=== PATIENT | male | born 1970 | race African-American/Black ===

== ENCOUNTER 2019-10-07 18:31 | Inpatient (IN) | payer OTHER ==
[~2019-10-07] VITALS: Ht 182.9 cm; Wt 65.9 kg
[2019-10-07 19:42] LABS: BASOPHIL % 0.5 % (0-2); PLATELET COUNT 215 x10^3mcL (130-400); RED CELL DISTRIBUTION WIDTH 15.5 % (11.5-14.5)
[2019-10-07 19:58] LABS: CALCIUM 8.9 mg/dL (8.5-10.1); CARBON DIOXIDE 29.5 mmol/L (21-32); CHLORIDE SERUM 108 mmol/L (98-107); CREATININE SERUM 1.1 mg/dL (0.7-1.3); GFR1 > 60 mL/min; GLUCOSE SERUM 79 mg/dL (74-106); SODIUM SERUM 144 mmol/L (136-145)
[2019-10-07 20:04] LABS: ALBUMIN 3.7 g/dL (3.4-5.0); ALKALINE PHOSPHATASE 92 U/L (46-116); ALT/SGPT 79 U/L (16-63); AST/SGOT 35 U/L (15-37); BILIRUBIN TOTAL 0.2 mg/dL (0.20-1.00)
[2019-10-07 20:05] LABS: TOTAL PROTEIN, SERUM 8.7 g/dL (6.4-8.2)
[2019-10-07] MEDS ORDERED: GRALISE600 MG PO (22:54)
[2019-10-07] MEDS ORDERED: ELIQUIS5 MG (22:57)
[2019-10-07] MEDS ORDERED: ATORVASTATIN CA10 M1 (22:58)
[2019-10-07] MEDS ORDERED: NIT0.4 (22:59)
[2019-10-07] MEDS ORDERED: COREG6.25 M1 PO (23:00)
[2019-10-07] MEDS ORDERED: ALD25 (23:00)
[2019-10-07] MEDS ORDERED: KEPPRA500 MG (23:01)
[2019-10-07 23:47] VITALS: BP 129/52
[2019-10-07 23:58] VITALS: Ht 182.9 cm; Wt 65.9 kg
[2019-10-08] VITALS (7 sets, daily range): BP systolic 96–133; BP diastolic 62–80
[2019-10-08 05:29] LABS: CHOLESTEROL/HDL RATIO 1.9
[2019-10-08] MEDS ORDERED: RANEXA500 M2 PO (11:19)
[2019-10-08 20:34] LABS: AMPHETAMINE QUAL UR NONE DETECTED (See below)
[2019-10-09 05:28] VITALS: BP 115/72
[2019-10-09 08:20] VITALS: BP 113/73
[2019-10-09 12:13] VITALS: BP 101/68
[2019-10-09 17:03] VITALS: BP 97/65
[2019-10-09 17:10] VITALS: BP 97/65
== END 2019-10-09 18:45 | disposition home health service (06) | DRG 198 ==
LOC: ED 18:31 → DU 21:02
PROVIDERS: Emergency Medicine; Hospitalist; ADMIT Internal Medicine Pulmonary Disease
DX: R07.89 Other chest pain (principal); I25.2 Old myocardial infarction; D57.80 Other sickle-cell disorders without crisis; I27.20 Pulmonary hypertension, unspecified; I42.8 Other cardiomyopathies; I11.0 Hypertensive heart disease with heart failure; E78.00 Pure hypercholesterolemia, unspecified; I50.22 Chronic systolic (congestive) heart failure; E78.5 Hyperlipidemia, unspecified; I69.854 Hemiplegia and hemiparesis following other cerebrovascular disease affecting left non-dominant side; Z88.2 Allergy status to sulfonamides; Z88.7 Allergy status to serum and vaccine; Z91.041 Radiographic dye allergy status; Z88.8 Allergy status to other drugs, medicaments and biological substances; Z95.0 Presence of cardiac pacemaker; Z87.891 Personal history of nicotine dependence; Z91.14 Patient's other noncompliance with medication regimen; Z71.6 Tobacco abuse counseling; Z23 Encounter for immunization
CPT/HCPCS: 83880; 90658; G0378; J1885; J2270; J3010; J7040; Q0092; Q0162

== ENCOUNTER 2019-10-18 12:23 | Emergency (ER) | payer OTHER ==
[~2019-10-18] VITALS: Ht 182.9 cm; Wt 66.7 kg
[~2019-10-18 12:23] MED LIST: ALD25; ATORVASTATIN CA10 M1; COREG6.25 M1 PO; ELIQUIS5 MG; GRALISE600 MG PO; KEPPRA500 MG; NIT0.4; RANEXA500 M2 PO
[2019-10-18 12:37] VITALS: Ht 182.9 cm; Wt 66.7 kg
[2019-10-18 13:19] LABS: BASOPHIL % 0.3 % (0-2); PLATELET COUNT 178 x10^3mcL (130-400)
[2019-10-18 13:24] LABS: RED CELL DISTRIBUTION WIDTH 15.9 % (11.5-14.5)
[2019-10-18 13:31] LABS: CALCIUM 9.2 mg/dL (8.5-10.1); CARBON DIOXIDE 29.5 mmol/L (21-32); CHLORIDE SERUM 105 mmol/L (98-107); CREATININE SERUM 1.3 mg/dL (0.7-1.3); GFR1 > 60 mL/min; GLUCOSE SERUM 86 mg/dL (74-106); SODIUM SERUM 143 mmol/L (136-145)
[2019-10-18 13:35] LABS: ALBUMIN 3.8 g/dL (3.4-5.0); ALKALINE PHOSPHATASE 93 U/L (46-116); ALT/SGPT 37 U/L (16-63); AMYLASE 113 U/L (25-115); AST/SGOT 20 U/L (15-37); BILIRUBIN TOTAL 0.3 mg/dL (0.20-1.00); LIPASE 241 IU/L (73-393)
[2019-10-18 13:36] LABS: TOTAL PROTEIN, SERUM 8.7 g/dL (6.4-8.2)
[2019-10-18 17:07] VITALS: BP 132/74
== END 2019-10-18 17:07 | disposition home or self-care (01) ==
LOC: ED 12:23
PROVIDERS: Emergency Medicine
DX: R10.13 Epigastric pain (principal); I11.0 Hypertensive heart disease with heart failure; I50.9 Heart failure, unspecified; Z88.1 Allergy status to other antibiotic agents; Z91.041 Radiographic dye allergy status; Z88.8 Allergy status to other drugs, medicaments and biological substances; Z88.2 Allergy status to sulfonamides
CPT/HCPCS: J2270; J2405; Q0092

== ENCOUNTER 2019-12-27 16:19 | Inpatient (IN) | payer OTHER ==
[~2019-12-27] VITALS: Ht 175.3 cm; Wt 59.4 kg
[2019-12-27 16:20] VITALS: Ht 175.3 cm; Wt 59.4 kg
[2019-12-27 17:03] LABS: PLATELET COUNT 329 x10^3mcL (130-400)
[2019-12-27 17:05] LABS: RED CELL DISTRIBUTION WIDTH 15.5 % (11.5-14.5)
[2019-12-27 17:11] LABS: CALCIUM 8.6 mg/dL (8.5-10.1); CARBON DIOXIDE 24.9 mmol/L (21-32); CHLORIDE SERUM 108 mmol/L (98-107); CREATININE SERUM 1.3 mg/dL (0.7-1.3); GFR1 > 60 mL/min; GLUCOSE SERUM 90 mg/dL (74-106); POTASSIUM SERUM 4.3 mmol/L (3.5-5.1); SODIUM SERUM 142 mmol/L (136-145)
[2019-12-27 17:15] LABS: ALKALINE PHOSPHATASE 106 U/L (46-116); ALT/SGPT 39 U/L (16-63); AST/SGOT 17 U/L (15-37); BILIRUBIN TOTAL 0.3 mg/dL (0.20-1.00); TOTAL PROTEIN, SERUM 8.2 g/dL (6.4-8.2)
[2019-12-27 17:17] LABS: ALBUMIN 3.2 g/dL (3.4-5.0)
[2019-12-27 17:27] LABS: BAND NEUTROPHIL 0 % (0-10); BASOPHIL 0 % (0-2); MONOCYTE 17 % (0-7); SEGMENTED NEUTROPHILS 47 % (37-75)
[2019-12-27 17:29] LABS: rbc morphology (normal/abnorm) NORMAL (NORMAL)
[2019-12-27 19:06] LABS: CHOLESTEROL/HDL RATIO 2.3
[2019-12-27 19:09] LABS: FREE T4 1.17 ng/dL (0.76-1.46); FREE THYROXINE INDEX 1.6 ug/dL (1.4-4.5)
[2019-12-27 19:10] LABS: T3 TOTAL 0.94 ng/mL
[2019-12-27 19:49] VITALS: BP 98/64
[2019-12-28 05:24] VITALS: BP 98/65
[2019-12-28 06:51] LABS: PLATELET COUNT 317 x10^3mcL (130-400)
[2019-12-28 07:02] LABS: RED CELL DISTRIBUTION WIDTH 15.2 % (11.5-14.5)
[2019-12-28 07:05] LABS: CALCIUM 8.6 mg/dL (8.5-10.1); CHLORIDE SERUM 108 mmol/L (98-107); GFR1 > 60 mL/min; GLUCOSE SERUM 90 mg/dL (74-106); POTASSIUM SERUM 4.1 mmol/L (3.5-5.1); SODIUM SERUM 141 mmol/L (136-145)
[2019-12-28 08:45] VITALS: BP 90/60
[2019-12-28 10:11] LABS: BAND NEUTROPHIL 0 % (0-10); BASOPHIL 0 % (0-2); MONOCYTE 19 % (0-7); SEGMENTED NEUTROPHILS 41 % (37-75)
[2019-12-28 10:13] LABS: PLATELET MORPHOLOGY PLATELETS NORMAL; rbc morphology (normal/abnorm) ABNORMAL (NORMAL)
[2019-12-28 12:18] VITALS: BP 104/70
[2019-12-28 16:29] VITALS: BP 101/67
[2019-12-28 21:04] VITALS: BP 102/68
[2019-12-29 05:32] VITALS: BP 106/61
[2019-12-29 06:38] LABS: BASOPHIL % 0.2 % (0-2); PLATELET COUNT 335 x10^3mcL (130-400)
[2019-12-29 06:46] LABS: RED CELL DISTRIBUTION WIDTH 15.2 % (11.5-14.5)
[2019-12-29 07:23] LABS: CALCIUM 9.3 mg/dL (8.5-10.1); CHLORIDE SERUM 105 mmol/L (98-107); CREATININE SERUM 1.2 mg/dL (0.7-1.3); GFR1 > 60 mL/min; GLUCOSE SERUM 102 mg/dL (74-106); MAGNESIUM 1.9 mg/dL (1.8-2.4); PHOSPHOROUS 3.8 mg/dL (2.5-4.9); POTASSIUM SERUM 4.1 mmol/L (3.5-5.1); SODIUM SERUM 138 mmol/L (136-145)
[2019-12-29 09:00] VITALS: BP 110/69
[2019-12-29 13:04] VITALS: BP 109/76
[2019-12-29 17:14] VITALS: BP 94/65
[2019-12-29 20:34] VITALS: BP 97/60
[2019-12-29 23:20] VITALS: BP 101/64
[2019-12-30 05:39] VITALS: BP 102/68
[2019-12-30 08:36] VITALS: BP 106/66
[2019-12-30 12:49] VITALS: BP 100/66
[2019-12-30] MEDS ORDERED: COZ25 PO (14:46)
[2019-12-30 15:50] VITALS: BP 100/66
== END 2019-12-30 16:20 | disposition home or self-care (01) | DRG 198 ==
LOC: ED 16:19 → DU 17:46 → MU 12-29 15:37
PROVIDERS: Emergency Medicine; ADMIT Family Medicine
DX: I20.8 Other forms of angina pectoris (principal); I11.0 Hypertensive heart disease with heart failure; I50.22 Chronic systolic (congestive) heart failure; I42.8 Other cardiomyopathies; I27.20 Pulmonary hypertension, unspecified; I20.0 Unstable angina; I48.91 Unspecified atrial fibrillation; E78.5 Hyperlipidemia, unspecified; Z88.5 Allergy status to narcotic agent; Z88.2 Allergy status to sulfonamides; Z88.8 Allergy status to other drugs, medicaments and biological substances; Z88.7 Allergy status to serum and vaccine; I25.2 Old myocardial infarction; Z90.49 Acquired absence of other specified parts of digestive tract; Z86.73 Personal history of transient ischemic attack (TIA), and cerebral infarction without residual deficits; Z79.899 Other long term (current) drug therapy
CPT/HCPCS: 83880; 84439; G0378; J2270; J2405; Q0092

== ENCOUNTER 2020-03-24 19:33 | Emergency (ER) | payer MEDICAID ==
[~2020-03-24] VITALS: Ht 182.9 cm; Wt 63.5 kg
[~2020-03-24 19:33] MED LIST changes: +COZ25 PO
[2020-03-24 19:35] VITALS: BP 120/74; Ht 182.9 cm; Wt 63.5 kg
== END 2020-03-24 20:40 | disposition home or self-care (01) ==
LOC: ED 19:33
DX: K08.9 Disorder of teeth and supporting structures, unspecified (principal); I50.9 Heart failure, unspecified; I11.0 Hypertensive heart disease with heart failure; I48.91 Unspecified atrial fibrillation; Z86.2 Personal history of diseases of the blood and blood-forming organs and certain disorders involving the immune mechanism; Z88.1 Allergy status to other antibiotic agents; Z88.2 Allergy status to sulfonamides

== ENCOUNTER 2020-07-17 15:48 | Emergency (ER) | payer BC ==
[~2020-07-17] VITALS: Ht 182.9 cm; Wt 70.3 kg
[2020-07-17 15:57] VITALS: Ht 182.9 cm; Wt 70.3 kg
[2020-07-17 18:18] LABS: UA SPECIFIC GRAVITY 1.015 (1.005-1.035); microscopic required? YES; urine erythrocyte NEGATIVE (NEGATIVE)
[2020-07-17 18:25] VITALS: BP 140/87
[2020-07-17 18:35] LABS: AMPHETAMINE QUAL UR NONE DETECTED (See below)
== END 2020-07-17 18:25 | disposition left against medical advice (07) ==
LOC: ED 15:48
PROVIDERS: Emergency Medicine
DX: J18.9 Pneumonia, unspecified organism (principal); R10.84 Generalized abdominal pain; F17.210 Nicotine dependence, cigarettes, uncomplicated; I42.9 Cardiomyopathy, unspecified; I11.0 Hypertensive heart disease with heart failure; I50.9 Heart failure, unspecified; I48.91 Unspecified atrial fibrillation; Z91.041 Radiographic dye allergy status; Z88.2 Allergy status to sulfonamides; Z98.890 Other specified postprocedural states
CPT/HCPCS: 36600; 83880; 85378; 87804; 99406